=== PATIENT | male | born 1935 | race Caucasian/White ===

== ENCOUNTER 2018-08-07 08:46 | Day surgery (SDC) | payer MEDICARE ==
[2018-08-07] VITALS (13 sets, daily range): BP systolic 112–149; BP diastolic 59–117; PULSE 61–83; TEMP 97.7
[~2018-08-07] VITALS: Ht 177.8 cm; Wt 87.0 kg
[2018-08-07 09:20] LABS: HEMATOCRIT 42.2 % (42.0-52.0); HEMOGLOBIN 14.7 g/dl (13.5-18.0); MEAN CELL VOLUME 94 fl (80.0-100.0); MEAN CORPUSCULAR HEMOGLOBIN 33 pg (27.0-31.0); MEAN CORPUSCULAR HGB CONC 35 g/dl (33.0-37.0); MEAN PLATELET VOLUME 9.6 fl (7.4-10.4); PLATELET COUNT 187 K/mm3 (130-400); REDCELL DISTRIBUTION WIDTH-CV 13.2 % (11.5-14.5)
[2018-08-07 09:24] LABS: PROTHROMBIN TIME 10.9 SECONDS (9.7-12.8)
[2018-08-07 09:27] LABS: CALCIUM 9.2 mg/dL (8.4-10.2); CREATININE, serum 0.71 (0.66-1.25); POTASSIUM 4.5 mmol/L (3.4-5.0)
[2018-08-07] MEDS ORDERED: GLUCOPHAGE500 MG/TAB PO (10:01)
[2018-08-07] MEDS ORDERED: ZESTRIL 20MG TA20 MG PO (10:02)
[2018-08-07] MEDS ORDERED: LIPITOR 10MG10 MG PO (10:02)
[2018-08-07] MEDS ORDERED: VITAMIN C500 MG PO (10:03)
[2018-08-07] MEDS ORDERED: ASPIRIN 81M81 MG/TA2 PO (10:03)
[2018-08-07] MEDS ORDERED: VITAMIN B12 681 TAB PO (10:03)
--- NOTE | 2018-08-07 12:10 | NUR ---
Pt to procedure
--- NOTE | 2018-08-07 12:15 | NUR ---
ALL SEDATION MEDICATIONS WILL BE GIVEN DURING PROCEDURE WITH VERBAL ORDER FROM MD, SEE MERGE FOR ADMIN TIMES. SEE MERGE FOR RASS AND MODERATE SEDATION ASSESSMENTS DURING AND POST PROCEDURE.
--- NOTE | 2018-08-07 14:28 | NUR ---
Zofran 4 mg iV slowly for c/o nausea at this time.
[2018-08-07] MEDS ORDERED: NORVASC2.5 MG PO (15:53)
--- NOTE | 2018-08-07 17:22 | NUR ---
Discharge instructions given to pt.Pt verbalizes understanding.INT removed,catheter tip intact.
--- NOTE | 2018-08-07 17:57 | NUR ---
Pt escorted out via wheelchair by this nurse.
== END 2018-08-07 17:57 | disposition home or self-care (01) ==
LOC: COL.CAR 08:46
PROVIDERS: Internal Medicine Cardiovascular Disease
DX: I25.10 Atherosclerotic heart disease of native coronary artery without angina pectoris (principal); R94.39 Abnormal result of other cardiovascular function study; I10 Essential (primary) hypertension; I44.7 Left bundle-branch block, unspecified; I51.7 Cardiomegaly; E11.9 Type 2 diabetes mellitus without complications; E78.00 Pure hypercholesterolemia, unspecified; Z87.891 Personal history of nicotine dependence; Z82.49 Family history of ischemic heart disease and other diseases of the circulatory system
CPT/HCPCS: C1760; C1894; J1644; J2250; J2405; J3010; Q9967